=== PATIENT | female | born 1975 | race Caucasian/White ===

== ENCOUNTER → 2017-06-26 | Outpatient (CLI) | payer BC ==
[~2017-06-26] MED LIST: BARIUM SULFATE 176 GM BTL PO ONE; BARIUM SULFATE 340 GM POWD ONE; LOR5/325 PO; LORA-1456 PO; METO-734 PO
--- NOTE | 2017-06-26 17:12 | RADIOLOGY IMAGING REPORT ---
FACILITY: [facility] - [place] PATIENT NAME: Lynnette Love : 1975 MR: [id number] V: [id number] EXAM DATE: ORDERING PHYSICIAN: [facility] TECHNOLOGIST: Location: [facility] [place] Patient: Lynnette Love : 1975 Visit/Account:[id number] Date of Sevice: 06/26/2017 Exam type: UPPER GI SERIES W/O AIR History: GERD, history of lap band surgery nine years ago Comparison: CT abdomen pelvis December 22, 2016. Findings: Double contrast upper GI series was performed with thick and thin barium in gastric lap band is noted . The opening did appear narrow however did not impede flow of barium into the stomach. Otherwise n o abnormality of the stomach duodenal bulb or duodenal C-loop was seen. There is no evidence of paula roesophageal reflux. The fluoroscopy dose area product is 572.31 micro-Juares's per meter squared IMPRESSION: 1. Postsurgical changes from a gastric lap band. The opening through the lap band did appear narrow however it did not impede flow barium into the stomach. No evidence of gastroesophageal reflux Report Dictated By: Rose Marie Peters MD at 06/26/2017 5:04 PM Report E-Signed By: Rose Marie Peters MD at 06/26/2017 5:07 PM WSN:[email or web address]
== END ==
LOC: RAD 07:58
DX: K21.9 Gastro-esophageal reflux disease without esophagitis (principal)
CPT/HCPCS: 74240

== ENCOUNTER → 2017-06-27 | Outpatient (CLI) | payer BC ==
[~2017-06-27] MED LIST changes: -BARIUM SULFATE 176 GM BTL PO ONE; -BARIUM SULFATE 340 GM POWD ONE
--- NOTE | 2017-06-28 08:26 | RADIOLOGY IMAGING REPORT ---
FAC[place] [facility] [place]IENT NAME: YAAKOV TORRES : [id number] MR: [id number] V: [id number] EXAM DATE: ORDERING PHYSICIAN: STEPHEN GILL TECHNOLOGIST: Veronica Mckeon PROCEDURE:BILATERAL DIGITAL SCREENING MAMMOGRAM WITH CAD ASSISTED INTERPRETATION AND 3D BREAST TOMOSYNTHESIS. COMPARISON:Prior mammograms dated 11/17/15, 09/14/14 and 09/06/14. INDICATIONS:SCREENING FINDINGS: A small amount of fibroglandular tissue is seen throughout the breasts. The parenchymal pattern has remained stable when allowing for difference in mammographic technique and patient positioning. There is no evidence of malignant appearing mass, malignant appearing calcification or other secondary sign of malignancy in either breast. DIAGNOSTIC CATEGORY 1--NEGATIVE. RECOMMENDATIONS: ROUTINE MAMMOGRAM AND CLINICAL EVALUATION. IMPRESSION: Bi-RADS 1: No significant abnormality is seen. Images were reviewed with R2CAD and 3D breast tomosynthesis. Dictated by: Rose Marie Peters M.D. on 06/27/2017 at 15:49 Transcribed by: MARGO on 06/27/2017 at 15:52 Approved by: Rose Marie Peters M.D. on 06/28/2017 at 8:25 [facility]
== END ==
LOC: MAMO 01:17
PROVIDERS: ATTEND Obstetrics & Gynecology
DX: Z12.31 Encounter for screening mammogram for malignant neoplasm of breast (principal)
CPT/HCPCS: 77063; 77067

== ENCOUNTER 2017-07-12 03:35 | Day surgery (SDC) | payer BC ==
--- NOTE | 2017-07-11 21:55 | HISTORY AND PHYSICAL ---
DATE OF ADMISSION: July 12, 2017 CHIEF COMPLAINT Abnormal bleeding. HISTORY OF PRESENT ILLNESS Patient is a 41-year-old 5, para 2 with abnormal bleeding beginning months ago. She has heavy bleeding from the vagina and it was moderate. It was severe at times with flooding which would last several days. It has gradually worsened over the past several months. She also reports pain with her cycles. She has had a saline infusion sonogram and an endometrial biopsy. The endometrial biopsy showed no evidence of hyperplasia, malignancy, polyp or chronic endometritis. The saline infusion sonogram revealed a normal appearing endometrial cavity. After discussion of risks and alternatives, patient had undesired fertility as well, so elected to proceed with hysteroscopic NovaSure ablation with laparoscopic bilateral salpingectomy. PAST MEDICAL HISTORY * Acid reflux. * Two vaginal deliveries. PAST SURGICAL HISTORY None. ALLERGIES No known allergies. CURRENT MEDICATIONS Homeopathic med for her burning reflux. SOCIAL HISTORY Drinks wine, one to three glasses a day. She is a nonsmoker. No illicit drug use. 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 FAMILY HISTORY Father with congestive heart failure, kidney disorder, hypertension, type 2 diabetes. Mother with hypothyroidism, skin cancer. REVIEW OF SYSTEMS GENITOURINARY: As per HPI. GENERAL, SKIN, EYES, EARS, NOSE, MOUTH, NECK,RESPIRATORY, CARDIOVASCULAR, GASTROINTESTINAL, NEUROLOGIC, PSYCHIATRIC: All reviewed and noncontributory. PHYSICAL EXAMINATION VITAL SIGNS: BP 110/68, temp 98.6, weight 168. CONSTITUTIONAL: A well-nourished, well-developed female in no distress. SKIN: Without rash or lesions. NECK: Supple without masses. HEART: Regular rate and rhythm. LUNGS: Clear to auscultation bilaterally. ABDOMEN: Soft, nontender, nondistended. Bowel sounds positive. EXTREMITIES: Nontender, no edema. PSYCHIATRIC: Alert and oriented times three. Normal mood and affect. PELVIC: Normal external female genitalia. Well estrogenized vaginal lining. No bladder tenderness, no uterine tenderness. Cervix normal in appearance. No adnexal masses or tenderness. ASSESSMENT Menorrhagia with undesired fertility. PLAN Plan to perform hysteroscopic NovaSure ablation with laparoscopic bilateral salpingectomy. [facility]
[2017-07-12] VITALS (22 sets, daily range): BP systolic 83–117; BP diastolic 54–87
[~2017-07-12] VITALS: Ht 162.6 cm; Wt 76.2 kg
[~2017-07-12 03:35] MED LIST changes: +LORA10CA3 PO; +OMEP-137 PO
[2017-07-12] MEDS ORDERED: ROPIVACAINE 0.2% 20 ML VIAL ONE (07:06)
[2017-07-12] MEDS: NORMOSOL R SOLN(*) 1000 ML BAG 1,000 ML IV PRN ×2 (08:22→16:45)
[2017-07-12 08:24] LABS: PLATELET COUNT, AUTOMATED 332 K/uL (150-450)
[2017-07-12] MEDS ORDERED: HYDROmorphone HCL 2 MG TAB PO ONE (08:45)
[2017-07-12] MEDS ORDERED: FAMOTIDINE 20 MG TAB PO ONE (08:45)
[2017-07-12] MEDS ORDERED: CELECOXIB 200 MG CAP PO ONE (08:45)
[2017-07-12] MEDS ORDERED: cefOXitin/DEX(*) 2GM/50ML PREM 50 ML IVPB ONE (08:45)
--- NOTE | 2017-07-12 08:47 | EKG ---
FACILITY: [facility] PATIENT NAME: YAAKOV TORRES : [id number] MR: [id number] V: [id number] EXAM DATE: ORDERING PHYSICIAN: CHRIS PRATHER TECHNOLOGIST: MARIANO Test Reason : PREOP-HYSTERECTOMY Blood Pressure : / mmHG Vent. Rate : 050 BPM Atrial Rate : 050 BPM P-R Int : 128 ms QRS Dur : 092 ms QT Int : 460 ms P-R-T Axes : 071 056 046 degrees QTc Int : 419 ms Sinus bradycardia Otherwise normal ECG No previous ECGs available Confirmed by BEN MATTHEW ([id number]) on 07/12/2017 12:28:27 PM Referred By: JAIRO Confirmed By:BEN MATTHEW
--- NOTE | 2017-07-12 08:56 | Post Operative Note ---
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 Operative Day Date: Jul 12, 2017 Time: 11:40 Physicians Surgeon: JAIRO Anesthesia: YAMILKA Diagnosis Pre-Op Diagnosis: MENORRHAGIA DYSMENORRHEA UNDESIRED FERTILITY Post-Op Diagnosis: SAME LEFT OVARIAN CYST Procedure Findings: UTERUS 6X5 CM NORMAL RIGHT OVARY, LARGE SIMPLE CYST ON LEFT OVARY NOVASURE POWER 80, 95 SECONDS [id number] Procedure(s): HSCOPE ENDOMETRIAL ABLATION LSCOPE BILATERAL SALPINGECTOMY, LEFT OVARIAN CYSTECTOMY Complications: 0 Fluids Fluids: 1000 CC NR IV 1000 CC HSCOPE INPUT 250 CC DEFICIT Estimated Blood Loss: MINIMAL Dictated Date OP Note Dictated: Jul 12, 2017 Time OP Note Dictated: 12:00 Copies to: STEPHEN GILL MD, JOHN MD Jul 12, 2017 08:56
[2017-07-12] MEDS ORDERED: PROPOFOL EMUL(*) 10MG/ML 20 ML 20 ML ONE (09:33)
[2017-07-12] MEDS ORDERED: fentaNYL CITR 100 MCG/2 ML AMP ONE ×3 (09:34→13:43)
[2017-07-12] MEDS ORDERED: IBUP800T37 PO (10:18)
[2017-07-12] MEDS ORDERED: HYDR2TAB4 PO (10:18)
--- NOTE | 2017-07-12 10:20 | OB/GYN Discharge Summary ---
Discharge Summary Reason for Hosp/Final Diag: (1) Status post hysteroscopic ablation of endometrium Hospital Course & Plan: hscope ablation performed along with lscope bilateral salpingectomy and left ovarian cystectomy, no complications (2) Status post laparoscopic procedure Lates Vital Signs Vital Signs Date Time Temp Pulse Resp B/P (MAP) Pulse Ox O2 Delivery O2 Flow Rate FiO2 07/12/17 08:36 97.7 60 16 109/77 (88) 96 Room Air Weight (Pounds): 168 Result Diagram: 07/12/1781607/12/17816 Condition: Improved Discharge: Home, Self [facility] Meds Active Scripts Ibuprofen (IBUPROFEN) 800 Mg Tablet, 1 TAB PO Q8H, #30 TAB 0 Refills Take with food every 8 hours. Prov:STEPHEN LINDA MD 07/12/17 Hydromorphone Hcl (HYDROMORPHONE HCL) 2 Mg Tablet, 2-4 MG PO Q4H for PAIN, #20 TAB 0 Refills Prov:STEPHEN LINDA MD 07/12/17 Reported Medications Loratadine (CLARITIN) 10 Mg Capsule, 10 MG PO PRN, CAPSULE 07/05/17 Omeprazole (OMEPRAZOLE) 20 Mg Tablet.dr, 20 MG PO QDAY, TAB 07/05/17 Discontinued Scripts Metoclopramide Hcl (REGLAN) 10 Mg Tablet, 10 MG PO Q6H for Nausea, #40 TAB 0 Refills Prov:AN PARKER MD 12/26/16 Lorazepam (ATIVAN) 1 Mg Tablet, 1 MG PO Q6H for Nausea, #30 TAB 0 Refills Prov:AN PARKER MD 12/26/16 Follow up with: Dr. Linda [phone] Follow up in: 2 wks PO Discharge Diet: As Tolerates Discharge Activity: Pelvic Rest Copies to: STEPHEN LINDA MD, JOHN MD Jul 12, 2017 10:20
[2017-07-12] MEDS ORDERED: ONDANSETRON 4 MG/2 ML VIAL ONE (10:35)
[2017-07-12] MEDS ORDERED: DEXAMETHASONE SOD 4 MG/ML VIAL ONE (10:35)
[2017-07-12] MEDS ORDERED: SUGAMMADEX SOD 200 MG/2 ML SDV ONE (10:53)
[2017-07-12] MEDS ORDERED: MIDAZOLAM 2 MG/2 ML VIAL IVP PRN (11:30)
[2017-07-12] MEDS ORDERED: LIDOCAINE/SOD BICARB 8.4% SYR ID ONE (11:30)
[2017-07-12] MEDS ORDERED: LR(*) 1000 ML BAG 1,000 ML IV ONE (11:53)
[2017-07-12] MEDS ORDERED: HYDROmorphone HCL 2 MG TAB PO PRN (11:55)
[2017-07-12] MEDS ORDERED: METOCLOPRAMIDE 10 MG/2 ML SDV IVP PRN (11:55)
[2017-07-12] MEDS ORDERED: PROMETHAZINE 25 MG/ML 1 ML AMP ONE (13:45)
--- NOTE | 2017-07-12 16:23 | OPERATIVE REPORT 1 ---
EVENT DATE: July 12, 2017 SURGEON: Noel Linda MD ANESTHESIOLOGIST: Angel Colindres MD ANESTHESIA: General. PREOPERATIVE DIAGNOSES 1. Menorrhagia. 2. Dysmenorrhea. 3. Undesired fertility. POSTOPERATIVE DIAGNOSES 1. Menorrhagia. 2. Dysmenorrhea. 3. Undesired fertility. 4. Left ovarian cyst. PROCEDURES PERFORMED 1. Hysteroscopic endometrial ablation. 2. Laparoscopic bilateral salpingectomy. 3. Left ovarian cystectomy. COMPLICATIONS None. FLUIDS Input 1000 mL of Normosol IV and 1000 mL of hysteroscopic fluid input with a 250 mL deficit. ESTIMATED BLOOD LOSS Minimal. INDICATIONS The patient is a 41-year-old female with abnormal bleeding over the past several months with painful periods and undesired fertility. She was consented for hysteroscopic NovaSure ablation with laparoscopic bilateral salpingectomy. FINDINGS Uterus 6 x 5 cm. Normal right ovary. There was a large simple cyst on her left ovary. NovaSure power was 80 for 95 seconds. DESCRIPTION OF PROCEDURE After informed consent was obtained, the patient was taken to the operating room with the IV running and placed in a supine position where general anesthesia was obtained without difficulty. She was then placed in the [facility] and examined under anesthesia with the above findings. She was prepped and draped in the usual fashion, and her bladder was drained. A side-out speculum was placed into the vagina. The cervix was grasped with a single-toothed tenaculum. The endocervix was curetted with a Kevorkian curette. A sample was passed off the table. The uterus was sounded to 9 cm. The cervix was dilated to allow passage of the hysteroscope. The hysteroscope was advanced. No abnormalities were noted. Then, the cervix was measured, and the cavity length was determined to be 4 cm. The NovaSure was then advanced into the uterus. Measurements were obtained and noted to be 4.5 cm wide which was entered into the NovaSure. The cavity integrity was checked, passed, and then activated for 95 seconds. Once this was accomplished, the NovaSure was removed. A hysteroscope was once again advanced, and a great ablation was noted throughout the uterine cavity. A sharp curettage was performed right before the NovaSure procedure of the endometrial cavity. The #8 STUART uterine manipulator was then advanced into the uterine cavity to provide a means to manipulate the uterus. The remainder of the instruments were removed from the vagina. Legs were lowered. Attention was then turned to the abdomen. Naropin 0.2 was infiltrated into the umbilicus. A skin incision was made with a scalpel. A Veress needle was advanced into the abdominal cavity. Normal CO2 filling pressures were noted. Once adequate insufflation had been performed, the 5 mm bladeless trocar was advanced under laparoscopic guidance. Intra- abdominal placement was confirmed by laparoscopy. No injuries were noted at the time of entry. An 8 mm suprapubic port was then advanced after 0.2 Naropin was infiltrated into the skin incision. A skin incision was made with a scalpel , advancing the 8 mm bladeless trocar into the abdomen under direct visualization. The right lateral port was also placed in a similar fashion. Naropin 0.2 was infiltrated into the skin incision. A skin incision was made with a scalpel, and then the 5 mm bladeless trocar was advanced under direct visualization. The patient was placed in Trendelenburg positioning. The left ovarian cyst could be identified. Tubes appeared normal. No other abnormalities were noted. The Gyrus cutting forceps was then used to transect the left tube away from the mesosalpinx and down through the cornual region where it was transected. The tube was removed from the abdomen, and attention was then turned to the right where the right tube was transected away from the right ovary and the mesosalpinx and across the cornual region of the uterus. She had a large left ovarian cyst. This was incised with a Gyrus cutting forceps, and then the cystectomy was performed with a grasper. The Gyrus cutting forceps was then used to create hemostasis within the ovarian stromal bed. Once adequate hemostasis was noted, the cornual regions of the tubes were then bilaterally clipped with 5 mm endoclips. Irrigation was performed. No further bleeding or abnormalities were noted. The gas was allowed to escape. All instruments were removed from the abdomen. The skin incisions were closed with 4-0 Maxon and Dermabond. The STUART was removed from the vagina. The patient was taken out of the [facility], awakened from anesthesia, and taken to the recovery room in stable condition. CHRIS
[2017-07-12] MEDS ORDERED: KETOROLAC 30 MG/ML VIAL ONE (16:50)
[2017-07-12] MEDS ORDERED: IBUPROFEN 800 MG TAB PO SCH (17:00)
[2017-07-12] MEDS ORDERED: HYDROmorphone HCL 2 MG/ML SDV ONE (17:59)
[2017-07-12] MEDS ORDERED: ONDANSETRON 4 MG ODT TABDP SL ONE (19:20)
== END 2017-07-12 12:52 | disposition home or self-care (01) ==
LOC: OR 03:35
PROVIDERS: ATTEND Obstetrics & Gynecology
DX: N92.0 Excessive and frequent menstruation with regular cycle (principal); N94.6 Dysmenorrhea, unspecified; N83.202 Unspecified ovarian cyst, left side
CPT/HCPCS: 36415; 58563; 58661; 58662; 84703; 85025; 88302; 88305; 93005; J0694; J1100; J1885; J2250; J2405; J2550; J2704; J2765; J2795; J3010; S0119; 82310; 82374; 82435; 82565; 82947; 84132; 84295; 84520

== ENCOUNTER → 2017-07-29 | Outpatient (CLI) | payer BC ==
[~2017-07-29] MED LIST changes: +HYDR2TAB4 PO; +IBUP800T37 PO
--- NOTE | 2017-07-29 13:55 | RADIOLOGY IMAGING REPORT ---
FACILITY: [facility] - [place] PATIENT NAME: Lynnette Love : 1975 MR: [id number] V: [id number] EXAM DATE: ORDERING PHYSICIAN: STEPHEN GILL TECHNOLOGIST: Location: [facility] - [place] Patient: Lynnette Love : 1975 Visit/Account:[id number] Date of Sevice: 07/29/2017 Exam type: CHEST PA AND LAT History: Cough, chest pain and wheezing x1 week Comparison: None. Findings: The lungs are free of acute effusions, infiltrates or edema. The cardiac silhouette is normal in siz e. The trachea is midline. There are surgical clips in the right upper quadrant abdomen. A port pr ojects over the upper abdomen IMPRESSION: 1. No acute cardiopulmonary process seen Report Dictated By: Rose Marie Peters MD at 07/29/2017 1:50 PM Report E-Signed By: Rose Marie Peters MD at 07/29/2017 1:52 PM WSN:[email or web address]
== END ==
LOC: RAD 10:08
PROVIDERS: ATTEND Obstetrics & Gynecology
DX: R50.9 Fever, unspecified (principal); R05 Cough
CPT/HCPCS: 71046

== ENCOUNTER 2017-11-04 12:37 | Emergency (ER) | payer BC, OTHER ==
--- NOTE | 2017-11-04 12:41 | ER Report ---
History and Physical Time Seen By MD: 12:40 HPI/ROS CHIEF COMPLAINT: Nausea, Vomiting, Diarrhea in the setting of a gastric lap band HISTORY OF PRESENT ILLNESS: Patient is a 42-year-old female here with complaints of nausea vomiting, abdominal pain, diarrhea since last approximately 2200. Patient reports having similar episode approximately 11 months prior for which she was evaluated here. She does have a history of gastric lap banding approximately 14 years ago which is still in place. Patient is not tolerating PO intake this time and complains of epigastric abdominal tenderness, nausea and burning. Patient denies hematochezia, melena, hematuria, hematemesis, fevers, chest pain, headache, blurred vision, rashes. REVIEW OF SYSTEMS: Constitutional: No fever, + chills. Eyes: No discharge. ENT: No sore throat. Cardiovascular: No chest pain, no palpitations. Respiratory: No cough, no shortness of breath. Gastrointestinal: + Mid epigastric abdominal pain, + Nausea, + vomiting, PO intolerance. Genitourinary: No hematuria. Musculoskeletal: No back pain. Skin: No rashes. Neurological: No headache. Allergies: Coded Allergies: No Known Drug Allergies (Unverified , 11/04/17) Home Meds Discontinued Reported Medications Loratadine (CLARITIN) 10 Mg Capsule, 10 MG PO PRN, CAPSULE 07/05/17 Omeprazole (OMEPRAZOLE) 20 Mg Tablet.dr, 20 MG PO QDAY, TAB 07/05/17 Discontinued Scripts Ibuprofen (IBUPROFEN) 800 Mg Tablet, 1 TAB PO Q8H, #30 TAB 0 Refills Take with food every 8 hours. Prov:STEPHEN GILL MD 07/12/17 Hydromorphone Hcl (HYDROMORPHONE HCL) 2 Mg Tablet, 2-4 MG PO Q4H for PAIN, #20 TAB 0 Refills Prov:STEPHEN GILL MD 07/12/17 Past Medical/Surgical History Lap band procedure Hx Smoking: No Smoking Status: Never Smoker Exposure to Second Hand Smoke?: No Hx Substance Use Disorder: No Hx Alcohol Use: Yes (OCC) Constitutional Vital Sign - Last 24 Hours 11/04/17 11/04/17 11/04/17 11/04/17 12:41 12:43 13:00 13:07 Temp 98.2 Pulse 67 71 Resp 20 B/P (MAP) 130/90 (103) 134/107 (116) Pulse Ox 99 83 O2 Delivery Room Air 11/04/17 11/04/17 11/04/17 11/04/17 13:08 13:30 13:37 13:42 Pulse 72 ??? B/P (MAP) 97/68 (78) Pulse Ox 100 O2 Flow Rate 2.0 11/04/17 11/04/17 11/04/17 11/04/17 13:47 13:52 13:57 14:00 Pulse ? B/P (MAP) ???/??? (1665) 11/04/17 11/04/17 11/04/17 11/04/17 14:02 14:07 14:12 14:17 Pulse ? 64 74 Pulse Ox 100 100 11/04/17 11/04/17 11/04/17 11/04/17 14:22 14:27 14:30 14:32 Pulse 67 68 69 B/P (MAP) 94/60 (71) Pulse Ox 100 100 100 11/04/17 11/04/17 11/04/17 11/04/17 14:37 14:42 14:47 14:52 Pulse 69 67 66 71 Pulse Ox 100 100 100 100 11/04/17 11/04/17 11/04/17 11/04/17 14:57 15:00 15:02 15:07 Pulse 68 68 ??? B/P (MAP) 94/57 (69) Pulse Ox 100 100 11/04/17 11/04/17 11/04/17 11/04/17 15:12 15:17 15:22 15:27 Pulse ??? 66 69 68 Pulse Ox 100 100 100 11/04/17 11/04/17 11/04/17 15:30 15:32 15:37 Pulse 69 69 B/P (MAP) 110/62 (78) Pulse Ox 100 100 Physical Exam General Appearance: Ill appearing, moderate distress, vomiting Eyes: Pupils equal and round no injection. Respiratory: Chest is non tender, lungs are clear to auscultation. Cardiac: regular rate and rhythm Gastrointestinal: Abdomen is soft and + TTP mid epigastrium, no masses, bowel sounds normal. Musculoskeletal: Neck: Neck is supple and non tender. Extremities have full range of motion and are non tender. Skin: No rashes or lesions. DIFFERENTIAL DIAGNOSIS: After history and physical exam differential diagnosis was considered for abdominal pain including but not limited to appendicitis, cholecystitis, gastritis and urinary tract infection, viral enteritis, food poisoning Medical Decision Making Data Points Result Diagram: 11/04/17 1254 11/04/17 1254 Laboratory Hematology Test 11/04/17 12:54 11/04/17 15:14 Red Blood Count 4.62 M/uL (4.17-5.56) Mean Corpuscular Volume 84.1 fL (80.0-96.0) Mean Corpuscular Hemoglobin 27.8 pg (26.0-33.0) Mean Corpuscular Hemoglobin Concent 33.0 g/dL (32.0-36.0) Red Cell Distribution Width 16.2 % (11.5-14.5) Mean Platelet Volume 9.1 fL (7.2-11.1) Neutrophils (%) (Auto) 85.9 % (39.4-72.5) Lymphocytes (%) (Auto) 11.1 % (17.6-49.6) Monocytes (%) (Auto) 2.4 % (4.1-12.4) Eosinophils (%) (Auto) 0.1 % (0.4-6.7) Basophils (%) (Auto) 0.5 % (0.3-1.4) Nucleated RBC Relative Count (auto) 0.0 /100WBC Neutrophils # (Auto) 9.6 K/uL (2.0-7.4) Lymphocytes # (Auto) 1.2 K/uL (1.3-3.6) Monocytes # (Auto) 0.3 K/uL (0.3-1.0) Eosinophils # (Auto) 0.0 K/uL (0.0-0.5) Basophils # (Auto) 0.1 K/uL (0.0-0.1) Nucleated RBC Absolute Count (auto) 0.00 K/uL Sodium Level 138 mmol/L (137-145) Potassium Level 3.8 mmol/L (3.5-5.0) Chloride Level 105 mmol/L (98-107) Carbon Dioxide Level 20 mmol/L (22-31) Blood Urea Nitrogen 9 mg/dl (7-18) Creatinine 0.70 mg/dl (0.52-1.04) Glomerular Filtration Rate Calc > 60.0 Random Glucose 126 mg/dl (75-110) Lactate 1.2 mmol/L (0.7-2.1) Calcium Level 9.4 mg/dl (8.4-10.2) Total Bilirubin 0.6 mg/dl (0.2-1.3) Aspartate Amino Transf (AST/SGOT) 19 U/L (0-35) Alanine Aminotransferase (ALT/SGPT) 20 U/L (0-56) Alkaline Phosphatase 57 U/L (0-126) Total Protein 7.7 gm/dl (6.3-8.2) Albumin 4.0 g/dl (3.5-5.0) Lipase 64 U/L (23-300) Human Chorionic Gonadotropin, Qual Negative (NEGATIVE) Urine Color Yellow Urine Clarity Clear Urine pH 5.0 pH (4.8-9.5) Urine Specific [place] 1.015 Urine Protein Negative mg/dL (NEGATIVE) Urine Glucose (UA) 50 mg/dL (NEGATIVE) Urine Ketones 20 mg/dL (NEGATIVE) Urine Blood Negative (NEGATIVE) Urine Nitrite Negative (NEGATIVE) Urine Bilirubin Negative (NEGATIVE) Urine Urobilinogen Negative mg/dL (0.2-1.9) Urine Leukocyte Esterase Negative (NEGATIVE) Urine RBC 2 /HPF (0-2/HPF) Urine WBC 2 /HPF (0-5/HPF) Urine Squamous Epithelial Cells Many /LPF (</=FEW) Urine Bacteria Negative /HPF (NONE-FEW) Urine Mucus Few /HPF (NONE-FEW) Chemistry Test 11/04/17 12:54 11/04/17 15:14 White Blood Count 11.2 k/uL (4.5-11.0) Red Blood Count 4.62 M/uL (4.17-5.56) Hemoglobin 12.8 g/dL (12.0-16.0) Hematocrit 38.9 % (34.0-47.0) Mean Corpuscular Volume 84.1 fL (80.0-96.0) Mean Corpuscular Hemoglobin 27.8 pg (26.0-33.0) Mean Corpuscular Hemoglobin Concent 33.0 g/dL (32.0-36.0) Red Cell Distribution Width 16.2 % (11.5-14.5) Platelet Count 356 K/uL (150-450) Mean Platelet Volume 9.1 fL (7.2-11.1) Neutrophils (%) (Auto) 85.9 % (39.4-72.5) Lymphocytes (%) (Auto) 11.1 % (17.6-49.6) Monocytes (%) (Auto) 2.4 % (4.1-12.4) Eosinophils (%) (Auto) 0.1 % (0.4-6.7) Basophils (%) (Auto) 0.5 % (0.3-1.4) Nucleated RBC Relative Count (auto) 0.0 /100WBC Neutrophils # (Auto) 9.6 K/uL (2.0-7.4) Lymphocytes # (Auto) 1.2 K/uL (1.3-3.6) Monocytes # (Auto) 0.3 K/uL (0.3-1.0) Eosinophils # (Auto) 0.0 K/uL (0.0-0.5) Basophils # (Auto) 0.1 K/uL (0.0-0.1) Nucleated RBC Absolute Count (auto) 0.00 K/uL Glomerular Filtration Rate Calc > 60.0 Lactate 1.2 mmol/L (0.7-2.1) Calcium Level 9.4 mg/dl (8.4-10.2) Total Bilirubin 0.6 mg/dl (0.2-1.3) Aspartate Amino Transf (AST/SGOT) 19 U/L (0-35) Alanine Aminotransferase (ALT/SGPT) 20 U/L (0-56) Alkaline Phosphatase 57 U/L (0-126) Total Protein 7.7 gm/dl (6.3-8.2) Albumin 4.0 g/dl (3.5-5.0) Lipase 64 U/L (23-300) Human Chorionic Gonadotropin, Qual Negative (NEGATIVE) Urine Color Yellow Urine Clarity Clear Urine pH 5.0 pH (4.8-9.5) Urine Specific [place] 1.015 Urine Protein Negative mg/dL (NEGATIVE) Urine Glucose (UA) 50 mg/dL (NEGATIVE) Urine Ketones 20 mg/dL (NEGATIVE) Urine Blood Negative (NEGATIVE) Urine Nitrite Negative (NEGATIVE) Urine Bilirubin Negative (NEGATIVE) Urine Urobilinogen Negative mg/dL (0.2-1.9) Urine Leukocyte Esterase Negative (NEGATIVE) Urine RBC 2 /HPF (0-2/HPF) Urine WBC 2 /HPF (0-5/HPF) Urine Squamous Epithelial Cells Many /LPF (</=FEW) Urine Bacteria Negative /HPF (NONE-FEW) Urine Mucus Few /HPF (NONE-FEW) Urinalysis Test 11/04/17 15:14 Urine Color Yellow Urine Clarity Clear Urine pH 5.0 pH (4.8-9.5) Urine Specific [place] 1.015 Urine Protein Negative mg/dL (NEGATIVE) Urine Glucose (UA) 50 mg/dL (NEGATIVE) Urine Ketones 20 mg/dL (NEGATIVE) Urine Blood Negative (NEGATIVE) Urine Nitrite Negative (NEGATIVE) Urine Bilirubin Negative (NEGATIVE) Urine Urobilinogen Negative mg/dL (0.2-1.9) Urine Leukocyte Esterase Negative (NEGATIVE) Urine RBC 2 /HPF (0-2/HPF) Urine WBC 2 /HPF (0-5/HPF) Urine Squamous Epithelial Cells Many /LPF (</=FEW) Urine Bacteria Negative /HPF (NONE-FEW) Urine Mucus Few /HPF (NONE-FEW) EKG/Imaging Imaging Exam type: CHEST PA AND LAT History: N/V Comparison: July 29, 2017. Findings: The lungs are free of acute effusions, infiltrates or edema. The cardiac swelling is normal in size. Trachea is midline. A gastric lap band projects over the upper abdomen. IMPRESSION: 1. No acute cardiopulmonary process seen CT abdomen and pelvis with IV contrast Indication: Abdominal pain. History of gastric banding. Comparison: 12/22/2016.. Technique: Axial CT images were obtained through the abdomen and pelvis during injection of nonionic iodinated intravenous contrast. Reformatted coronal and sagittal images were also obtained. One of the following dose optimization techniques was utilized in the performance of this exam: Automated exposure control; adjustment of the mA and/ or kV according to the patient's size; or use of an iterative reconstruction technique. Specific details can be referenced in the facility's radiology CT exam operational policy. Contrast: 75 ml of Isovue-370 IV contrast. Findings: Lower lung valencia: Limited views lower lung field are unremarkable. Liver: No focal parenchymal abnormality of the liver. Biliary: Status post cholecystectomy. The biliary system is unremarkable. Pancreas: Normal appearance. Spleen: Normal appearance. Adrenal glands: Unremarkable. Kidneys / retroperitoneum: No evidence of nephrolithiasis or hydronephrosis. No focal abnormality. Bowel / peritoneum / mesenteries: Stomach shows gastric band in place. There is some fluid and air in the upper portion of the stomach however is not overly distended. The distal stomach does show fluid and air as well but is not overly distended. The appearance is unchanged from the previous examination. The stomach shows no other focal abnormality. The small bowel shows no focal abnormality or obstruction. The colon shows no focal abnormality. Tiny bit of free fluid is seen in the pelvis is likely physiologic. No fluid collections, free air or areas of inflammation. Small umbilical hernia containing fat. Lymph node assessment: No pathologic adenopathy identified. Pelvic structures: Both ovaries appear normal with physiologic cysts. The uterus is unremarkable. The urinary bladder shows no focal abnormality. The remaining pelvic structures visualized within normal limits. Vessels: No significant atherosclerotic calcifications seen throughout a nonaneurysmal abdominal aorta and branches. Musculoskeletal / Body wall: No acute or aggressive osseous abnormality. IMPRESSION: 1. No acute intra-abdominal abnormality 2. Status post gastric band. The appearance of the stomach and the band is unchanged from the previous examination. There is some fluid and air above the band and below the band within the stomach without overt distention. No discrete indication of obstruction. No focal abnormality. ED Course/Re-evaluation ED Course Patient is a 42-year-old female here with complaints of nausea, vomiting, diarrhea and epigastric abdominal pain in the setting of a prior gastric lap band surgery approximately 14 years ago in [place]. Patient reports having similar pains approximately 11 months ago. Symptoms started approximately 2200 last and been constant since onset. Patient complains of PO intolerance and generalized weakness but denies fever, CP, SOB, headache, blood in the stools, urine or vomitus. Patient was administered NS bolus 1 liter, zofran, dilaudid, banana bag w/ mag. CT AP with oral contrast showed no acute signs of infection or blockage. Labs showed signs of mild dehydration. Patient was given a script for zofran and was able to tolerate PO fluids prior to discharge. Decision to Disposition Date: November 04, 2017 Decision to Disposition Time: 16:15 Depart Departure Latest Vital Signs Vital Signs Date Time Temp Pulse Resp B/P (MAP) Pulse Ox O2 Delivery O2 Flow Rate FiO2 11/04/17 15:37 69 100 11/04/17 15:30 110/62 (78) 11/04/17 13:08 2.0 11/04/17 12:41 98.2 20 Room Air Impression: Primary Impression: Nausea & vomiting Additional Impression: Abdominal pain Condition: Improved Disposition: HOME OR SELF-CARE New Scripts Ondansetron (ZOFRAN ODT) 4 Mg Tab.rapdis 4 MG PO Q6H for Nausea, #20 TAB.MIRTA Prov: MARELY MOON DO 11/04/17 Patient Instructions: Acute Nausea and Vomiting (ED), Ondansetron (By mouth, Into the mouth) Additional Instructions: You may take 1 tablet of Zofran every 6 hours as needed for nausea. Please drink plenty of water. Follow-up with your surgeon for possible evaluation for lap band adjustment. He is return promptly if you develop fevers, chills, worsening abdominal pain, nausea, inability to hold down fluids. Problem Qualifiers MARELY MOON DO November 04, 2017 12:41
[2017-11-04] MEDS ORDERED: NS(*) 0.9% 1000 ML BAG 1,000 ML IV ONE (12:52)
[2017-11-04] MEDS ORDERED: ONDANSETRON 4 MG/2 ML VIAL IVP ONE (12:55)
[2017-11-04] MEDS ORDERED: HYDROmorphone* 1 MG/ML 1 MG/ML ML IVP ONE (12:55)
[2017-11-04 13:08] LABS: PLATELET COUNT, AUTOMATED 356 K/uL (150-450)
[2017-11-04] MEDS ORDERED: THIAMINE HCL(*) 200 MG/2 ML IN 100 MG, FOLIC ACID(*) 50 MG/10 ML INJ 1 MG, MULTIVITAMIN... IV ONE (13:20)
[2017-11-04] MEDS ORDERED: IOPAMIDOL 76% 75 ML INFUS BTL 75 ML ONE (13:25)
[2017-11-04] MEDS ORDERED: LORazepam 2 MG/ML VIAL IVP ONE (13:40)
[2017-11-04] MEDS ORDERED: METOCLOPRAMIDE 10 MG/2 ML SDV IVP ONE (13:40)
--- NOTE | 2017-11-04 14:16 | RADIOLOGY IMAGING REPORT ---
FACILITY: [facility] - [place] PATIENT NAME: Lynnette Love : 1975 MR: [id number] V: [id number] EXAM DATE: ORDERING PHYSICIAN: MARELY MOON TECHNOLOGIST: Location: [facility] Patient: Lynnette Love : 1975 Visit/Account:[id number] Date of Sevice: 11/04/2017 Exam type: CHEST PA AND LAT History: N/V Comparison: July 29, 2017. Findings: The lungs are free of acute effusions, infiltrates or edema. The cardiac swelling is normal in size. Trachea is midline. A gastric lap band projects over the upper abdomen. IMPRESSION: 1. No acute cardiopulmonary process seen Report Dictated By: Rose Marie Peters MD at 11/04/2017 2:10 PM Report E-Signed By: Rose Marie Peters MD at 11/04/2017 2:11 PM WSN:[id number]
--- NOTE | 2017-11-04 14:36 | RADIOLOGY IMAGING REPORT ---
FACILITY: [facility] - [place] PATIENT NAME: Lynnette Love : 1975 MR: [id number] V: [id number] EXAM DATE: ORDERING PHYSICIAN: MARELY MOON TECHNOLOGIST: Location: [facility] - [place] Patient: Lynnette Love : 1975 Visit/Account:[id number] Date of Sevice: 11/04/2017 CT abdomen and pelvis with IV contrast Indication: Abdominal pain. History of gastric banding. Comparison: 12/22/2016.. Technique: Axial CT images were obtained through the abdomen and pelvis during injection of nonioni c iodinated intravenous contrast. Reformatted coronal and sagittal images were also obtained. One of the following dose optimization techniques was utilized in the performance of this exam: Autom ated exposure control; adjustment of the mA and/or kV according to the patient's size; or use of an i terative reconstruction technique. Specific details can be referenced in the facility's radiology C T exam operational policy. Contrast: 75 ml of Isovue-370 IV contrast. Findings: Lower lung valencia: Limited views lower lung field are unremarkable. Liver: No focal parenchymal abnormality of the liver. Biliary: Status post cholecystectomy. The biliary system is unremarkable. Pancreas: Normal appearance. Spleen: Normal appearance. Adrenal glands: Unremarkable. Kidneys / retroperitoneum: No evidence of nephrolithiasis or hydronephrosis. No focal abnormality. Bowel / peritoneum / mesenteries: Stomach shows gastric band in place. There is some fluid and air in the upper portion of the stomach however is not overly distended. The distal stomach does show fluid and air as well but is not overly distended. The appearance is unchanged from the previous examinati on. The stomach shows no other focal abnormality. The small bowel shows no focal abnormality or obstr uction. The colon shows no focal abnormality. Tiny bit of free fluid is seen in the pelvis is likely physiologic. No fluid collections, free air or areas of inflammation. Small umbilical hernia containing fat. Lymph node assessment: No pathologic adenopathy identified. Pelvic structures: Both ovaries appear normal with physiologic cysts. The uterus is unremarkable. The urinary bladder shows no focal abnormality. The remaining pelvic structures visualized within nor mal limits. Vessels: No significant atherosclerotic calcifications seen throughout a nonaneurysmal abdominal aort a and branches. Musculoskeletal / Body wall: No acute or aggressive osseous abnormality. IMPRESSION: 1. No acute intra-abdominal abnormality 2. Status post gastric band. The appearance of the stomach and the band is unchanged from the previou s examination. There is some fluid and air above the band and below the band within the stomach witho ut overt distention. No discrete indication of obstruction. No focal abnormality. Report Dictated By: Jamir Torres at 11/04/2017 2:23 PM Report E-Signed By: Jamir Torres at 11/04/2017 2:30 PM WSN:[id number]
[2017-11-04 16:00] VITALS: BP 117/82
[2017-11-04] MEDS ORDERED: ONDA4TAB PO (16:13)
== END 2017-11-04 16:26 | disposition home or self-care (01) ==
LOC: ER 12:39
DX: R11.2 Nausea with vomiting, unspecified (principal); R10.13 Epigastric pain; E86.0 Dehydration
CPT/HCPCS: 71046; 74177; 81001; 83605; 83690; 84703; 85025; 96365; 96366; 96375; 99284; J1170; J2060; J2405; J2765; J3411; J3475; J7030; Q9967; 82040; 82247; 82310; 82374; 82435; 82565; 82947; 84075; 84132; 84155; 84295; 84450; 84460; 84520